=== PATIENT | male | born 1990 | race Hispanic/Latino ===

== ENCOUNTER 2018-02-11 16:26 | Emergency (ER) | payer OTHER ==
[2018-02-11] MEDS ORDERED: LIDOCAINE 2% MPF 5 ML VIAL ONE (16:47)
[2018-02-11] MEDS ORDERED: TETANUS & DIPHTHERIA TOX,ADULT 0.5 ML VIAL ONE (16:50)
--- NOTE | 2018-02-11 17:10 | EDPHYS ---
Physician Documentation [facility] Name: Bruno Atkins Jr Age: 27 yrs Sex: Male : 1990 Arrival Date: 02/11/2018 Time: 16:30 Bed 28 Private MD: ED Physician Jake Rod HPI: 02/11 17:20 This 27 yrs old Male presents to ER via Ambulatory with complaints of Finger snw Injury. 17:20 The patient or guardian reports injury, a laceration, irregular. The complaints affect snw the palmar aspect of middle phalanx of left index finger. Context: The problem was sustained at work, resulted from knife slipped. Onset: The symptoms/episode began/occurred suddenly, just prior to arrival. Associated signs and symptoms: The patient has no apparent associated signs or symptoms. The patient has not experienced similar symptoms in the past. The patient has not recently seen a physician. Historical: - Allergies: 16:33 No Known Allergies; sv - Home Meds: 16:33 None [Active]; sv - PMHx: 16:33 None; sv - PSHx: 16:33 None; sv - Immunization history:: Adult Immunizations up to date. - Social history:: Smoking status: Patient uses tobacco products, smokes one-half pack cigarettes per day. - Ebola Screening: : No symptoms or risks identified at this time. ROS: 17:14 Constitutional: Negative for fever, chills, and weight loss, Eyes: Negative for injury, snw pain, redness, and discharge, ENT: Negative for injury, pain, and discharge, Neck: Negative for injury, pain, and swelling, Cardiovascular: Negative for chest pain, palpitations, and edema, Respiratory: Negative for shortness of breath, cough, wheezing, and pleuritic chest pain, Abdomen/GI: Negative for abdominal pain, nausea, vomiting, diarrhea, and constipation, Back: Negative for injury and pain, : Negative for injury, bleeding, discharge, and swelling, MS/Extremity: Negative for injury and deformity, Neuro: Negative for headache, weakness, numbness, tingling, and seizure, Psych: Negative for depression, anxiety, suicide ideation, homicidal ideation, and hallucinations. 17:14 Skin: Positive for laceration(s), of the palmar aspect of middle phalanx of left index finger. Exam: 17:13 Constitutional: This is a well developed, well nourished patient who is awake, alert, snw and in no acute distress. Head/Face: Normocephalic, atraumatic. Eyes: Pupils equal round and reactive to light, extra-ocular motions intact. Lids and lashes normal. Conjunctiva and sclera are non-icteric and not injected. Cornea within normal limits. Periorbital areas with no swelling, redness, or edema. ENT: Nares patent. No nasal discharge, no septal abnormalities noted. Tympanic membranes are normal and external auditory canals are clear. Oropharynx with no redness, swelling, or masses, exudates, or evidence of obstruction, uvula midline. Mucous membranes moist. Neck: Trachea midline, no thyromegaly or masses palpated, and no cervical lymphadenopathy. Supple, full range of motion without nuchal rigidity, or vertebral point tenderness. No Meningismus. Chest/axilla: Normal chest wall appearance and motion. Nontender with no deformity. No lesions are appreciated. Cardiovascular: Regular rate and rhythm with a normal S1 and S2. No gallops, murmurs, or rubs. Normal PMI, no JVD. No pulse deficits. Respiratory: Lungs have equal breath sounds bilaterally, clear to auscultation and percussion. No rales, rhonchi or wheezes noted. No increased work of breathing, no retractions or nasal flaring. Abdomen/GI: Soft, non-tender, with normal bowel sounds. No distension or tympany. No guarding or rebound. No evidence of tenderness throughout. Back: No spinal tenderness. No costovertebral tenderness. Full range of motion. MS/ Extremity: Pulses equal, no cyanosis. Neurovascular intact. Full, normal range of motion. Neuro: Awake and alert, GCS 15, oriented to person, place, time, and situation. Cranial nerves II-XII grossly intact. Motor strength 5/5 in all extremities. Sensory grossly intact. Cerebellar exam normal. Normal gait. 17:13 Skin: Appearance: normal except for affected area, Color: normal in color, lesion(s), noted, and can be described as bleeding, tender, located on the palmar aspect of middle phalanx of left index finger. Vital Signs: 16:33 BP 123 / 75; Pulse 77; Resp 18; Temp 97.9; Pulse Ox 100% ; Weight 91.17 kg; Height 5 sv ft. 5 in. (165.10 cm); Pain 1/10; 17:42 BP 118 / 71; Pulse 69; Resp 16; Pulse Ox 99% on R/A; mb3 16:33 Body Mass Index 33.45 (91.17 kg, 165.10 cm) sv Laceration: 17:18 Wound Repair of 1.2cm ( 0.5in ) subcutaneous laceration to palmar aspect of middle snw phalanx of left index finger. Irregularly shaped.. Distal neuro/vascular/tendon intact. Anesthesia: Local anesthetic administered with 6 mls of 1% lidocaine. Wound prep: Extensive cleansing with betadine by me. Skin closed with 3 4-0 Prolene using simple sutures and sterile technique. Dressed with pressure dressing. Patient tolerated well. MDM: 17:09 Patient medically screened. snw 17:17 Data reviewed: vital signs, nurses notes. Data interpreted: Pulse oximetry: on room air snw is 100 %. Interpretation: acceptable. Counseling: I had a detailed discussion with the patient and/or guardian regarding: the historical points, exam findings, and any diagnostic results supporting the discharge/admit diagnosis, the need for outpatient follow up, to return to the emergency department if symptoms worsen or persist or if there are any questions or concerns that arise at home. Special discussion: Based on the history and exam findings, there is no indication for further emergent testing or inpatient evaluation. I discussed with the patient/guardian the need to see the primary care provider for further evaluation of the symptoms. 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 Exp: mb3 03/30/2020. Lot #: [id number]. } Route: IM; Site: left deltoid; 17:39 Follow up: Response: No adverse reaction mb3 Disposition: 17:54 Co-signature as Attending Physician, Jake Rod MD. rn Disposition: 02/11/18 17:09 Discharged to Home. Impression: Laceration without foreign body of finger without damage to nail. - Condition is Stable. - Discharge Instructions: Laceration Care, Adult, Sutured Wound Care, VIS, Tetanus, Diphtheria (Td) - [facility]. - Prescriptions for Keflex 500 mg Oral Capsule - take 1 capsule by ORAL route every 8 hours for 10 days; 30 capsule. Diclofenac Sodium 75 mg Oral Tablet Sustained Release - take 1 tablet by ORAL route 2 times per day; 30 tablet. - Work release form, Medication Reconciliation Form, Thank You Letter, Antibiotic Education, Prescription Opioid Use form. - Follow up: Private Physician; When: 10 - 14 days; Reason: Staple/Suture removal. Follow up: Emergency Department; When: As needed; Reason: Worsening of condition. Signatures: Macey Hopper RN RN Conchis Richardson, TAFE LECTURER-C TAFE LECTURER-Csnw Jake Rod MD MD rn Barnett, Mark, RN RN mb3 Corrections: (The following items were deleted from the chart) 17:44 17:09 02/11/2018 17:09 Discharged to Home. Impression: Laceration without foreign body mb3 of finger without damage to nail. Condition is Stable. Forms are Medication Reconciliation Form, Thank You Letter, Antibiotic Education, Prescription Opioid Use. Follow up: Private Physician; When: 10 - 14 days; Reason: Staple/Suture removal. Follow up: Emergency Department; When: As needed; Reason: Worsening of condition. snw
--- NOTE | 2018-02-11 17:10 | ER ---
Nurse's Notes [facility] Name: Bruno Atkins Jr Age: 27 yrs Sex: Male : 1990 Arrival Date: 02/11/2018 Time: 16:30 Bed 28 Private MD: Diagnosis: Laceration without foreign body of finger without damage to nail Presentation: 02/11 16:32 Presenting complaint: Patient states: sliced left 2nd digit with knife at work today. sv Transition of care: patient was not received from another setting of care. Onset of symptoms was February 11, 2018. Care prior to arrival: None. 16:32 Method Of Arrival: Ambulatory sv 16:32 Acuity: MANA 4 sv 17:44 Risk Assessment: Do you want to hurt yourself or someone else? Patient reports no mb3 desire to harm self or others. Initial Sepsis Screen: Does the patient meet any 2 criteria? No. Patient's initial sepsis screen is negative. Does the patient have a suspected source of infection? No. Patient's initial sepsis screen is negative. Historical: - Allergies: 16:33 No Known Allergies; sv - Home Meds: 16:33 None [Active]; sv - PMHx: 16:33 None; sv - PSHx: 16:33 None; sv - Immunization history:: Adult Immunizations up to date. - Social history:: Smoking status: Patient uses tobacco products, smokes one-half pack cigarettes per day. - Ebola Screening: : No symptoms or risks identified at this time. Screenin:42 Abuse screen: Denies threats or abuse. Nutritional screening: No deficits noted. mb3 Tuberculosis screening: No symptoms or risk factors identified. Fall Risk None identified. Assessment: 17:41 General: Appears in no apparent distress. comfortable, Behavior is calm, cooperative, mb3 appropriate for age. Pain: Complains of pain in palmar aspect of middle phalanx of left index finger. Neuro: No deficits noted. Cardiovascular: No deficits noted. Musculoskeletal: Reports pain in palmar aspect of middle phalanx of left index finger. Injury Description: Laceration sustained to palmar aspect of middle phalanx of left index finger is 0.5 to 2.5 cm long, bleeding moderately, was sustained 1-2 hours ago. Vital Signs: 16:33 BP 123 / 75; Pulse 77; Resp 18; Temp 97.9; Pulse Ox 100% ; Weight 91.17 kg; Height 5 sv ft. 5 in. (165.10 cm); Pain 1/10; 17:42 BP 118 / 71; Pulse 69; Resp 16; Pulse Ox 99% on R/A; mb3 16:33 Body Mass Index 33.45 (91.17 kg, 165.10 cm) ED Course: 16:30 Patient arrived in ED. sv 16:33 Triage completed. sv 16:34 Arm band placed on left wrist. sv 16:39 Anthony Larson PA is PHCP. [facility] 16:39 Jake Rod MD is Attending Physician. [facility] 16:39 PHCP role handed off by Anthony Larson PA sn 16:39 Conchis Puckett FNP-C is PHCP. snw 16:42 Bridger Stoner RN is Primary Nurse. mb3 17:43 Assist provider with laceration repair that was 2.5 cm. or less using sutures. Set up mb3 tray. Performed by Conchis HOFF Dressed with band aid, Neosporin. Patient did not have IV access during this emergency room visit. 17:44 Patient has correct armband on for positive identification. 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 Exp: mb3 03/30/2020. Lot #: [id number]. } Route: IM; Site: left deltoid; 17:39 Follow up: Response: No adverse reaction mb3 Outcome: 17:09 Discharge ordered by . snw 17:43 Discharged to home ambulatory. mb3 17:43 Condition: stable 17:43 Discharge instructions given to patient, Instructed on discharge instructions, follow up and referral plans. medication usage, wound care, Demonstrated understanding of instructions, follow-up care, medications, wound care, Prescriptions given X 2. 17:44 Patient left the ED. mb3 Signatures: Macey Hopper RN RN Conchis Puckett EMISSIONS REPAIR TECHNICIAN-C EMISSIONS REPAIR TECHNICIAN-Csnw Anthony Larson PA PA [facility] Bridger Stoner RN RN mb3
== END 2018-02-11 17:44 | disposition home or self-care (01) ==
LOC: ER 16:26
PROC: 0JQK0ZZ Repair Left Hand Subcutaneous Tissue and Fascia, Open Approach (ICD-10-PCS; principal; 2018-02-11)
DX: S61.211A Laceration without foreign body of left index finger without damage to nail, initial encounter (principal); W26.0XXA Contact with knife, initial encounter; Y93.89 Activity, other specified; Y92.89 Other specified places as the place of occurrence of the external cause; F17.210 Nicotine dependence, cigarettes, uncomplicated
CPT/HCPCS: 90714; 99283